=== PATIENT | female | born 1990 | race Two or more races ===

== ENCOUNTER 2024-09-23 04:34 | Emergency (ER) | payer OTHER, SELFPAY ==
[2024-09-23 04:38] VITALS: BP 117/76; BMI 30.9
--- NOTE | 2024-09-23 04:50 | ED.GENMED ---
History of Present Illness
<Ashish Magana MD - Last Filed: 09/23/24 13:25>
General
Chief Complaint: Abdominal Pain
Source: patient
Exam Limitations: none
Time Seen by Provider: 09/23/24 04:43
Nursing documentation reviewed up to this point in time: agreed with
History of Present Illness
History of Present Illness:
Patient presents to ED secondary to sudden onset of lower abdominal pain, which woke the patient up from sleep this morning at 3 AM. Prior to going to sleep, patient does report having had lower abdominal cramping sensation, similar to previous
menstrual cramping sensation with her period. Incidentally, her monthly menstrual cycle started yesterday. Denies trauma. Abdominal pain described as sharp, nonradiating, without any alleviating or exacerbating factors. Denies back pain. Denies
difficulty with urination. Denies previous history of similar symptoms. Denies family history of kidney stones.
Review of Systems
<Ashish Magana MD - Last Filed: 09/23/24 13:25>
Review of Systems
Allergies reviewed?: Yes
All Other Systems: ROS reviewed and negative except as documented in HPI and ROS
Constitutional: Reports no symptoms; Denies fever
ABD/GI: Reports abdominal pain; Denies vomiting or diarrhea
: Reports no symptoms; Denies frequency or difficulty voiding
Musculoskeletal: Reports no symptoms; Denies back pain
Skin: Reports no symptoms
Neurological: Reports no symptoms
Phy Exam
<Ashish Magana MD - Last Filed: 09/23/24 13:25>
Physical Exam
Physical Exam:
Physical Exam
General: mild painful distress, not acutely ill. afebrile
Head: nc/at. eomi
Neck: supple. normal range of motion.
Heart: s1/s2 regular rate and rhythm, no murmur.
Lungs: no acute respiratory distress. clear bilaterally
Abdomen: normal bowel sounds. mild RLQ tenderness to palpation
Neuro: alert and oriented x 3. no focal neurological deficits
Skin: no rash
Psychiatric: well kept. interactive and cooperative
Extremities: no edema. no calf tenderness.
Course
<Ashish Magana MD - Last Filed: 09/23/24 13:25>
Orders/Labs/Results
Orders:
Orders
09/23/24 04:37
IV Insert/Care/Rem.- Treatment PRN
Test Result ONCE
09/23/24 04:44
Complete Blood Count/With Diff Urgent
Comprehensive Metabolic Panel Urgent
HCG, Serum Qualitative Screen Urgent
Lipase Urgent
09/23/24 04:49
0.9% Sodium Chloride 500 ml [Nss] 500 ml IV BOLUS
Ketorolac [Toradol] 15 mg IV NOW STA
US Pelvis W Transvag Combined Urgent
Comment:
Reason For Exam: RLQ pain
Abnormal Lab Results
09/23/24
04:44
Hgb 11.5 L g/dL
(12.0-16.0)
Hct 35.2 L %
(37.0-47.0)
MCH 26.6 L pg
(27.0-31.0)
MCHC 32.7 L g/dL
(33.0-37.0)
MPV 11.3 H fL
(7.4-10.4)
Absolute Monos (auto) 0.7 H 10^3/uL
(0.1-0.6)
Chloride 109 H mmol/L
(98-107)
BUN 19 H mg/dl
(7-17)
Glucose 111 H mg/dl
(70-99)
Alkaline Phosphatase 35 L U/L
(38-126)
09/23/24 04:44
09/23/24 04:44
Vital Signs
Initial and Last Documented VS:
Initial Vital Signs
Temp Pulse Resp BP
98.3 F 73 20 117/76
09/23/24 04:38 09/23/24 04:38 09/23/24 04:38 09/23/24 04:38
Last Documented Vital Signs
Temp Pulse Resp BP
98.3 F 73 21 108/62
09/23/24 04:38 09/23/24 06:41 09/23/24 06:41 09/23/24 06:41
<Naty Gregory DO - Last Filed: 09/23/24 07:06>
Orders/Labs/Results
Orders:
Orders
09/23/24 04:37
IV Insert/Care/Rem.- Treatment PRN
Test Result ONCE
09/23/24 04:44
Complete Blood Count/With Diff Urgent
Comprehensive Metabolic Panel Urgent
HCG, Serum Qualitative Screen Urgent
Lipase Urgent
09/23/24 04:49
0.9% Sodium Chloride 500 ml [Nss] 500 ml IV BOLUS
Ketorolac [Toradol] 15 mg IV NOW STA
US Pelvis W Transvag Combined Urgent
Comment:
Reason For Exam: RLQ pain
Abnormal Lab Results
09/23/24
04:44
Hgb 11.5 L g/dL
(12.0-16.0)
Hct 35.2 L %
(37.0-47.0)
MCH 26.6 L pg
(27.0-31.0)
MCHC 32.7 L g/dL
(33.0-37.0)
MPV 11.3 H fL
(7.4-10.4)
Absolute Monos (auto) 0.7 H 10^3/uL
(0.1-0.6)
Chloride 109 H mmol/L
(98-107)
BUN 19 H mg/dl
(7-17)
Glucose 111 H mg/dl
(70-99)
Alkaline Phosphatase 35 L U/L
(38-126)
09/23/24 04:44
09/23/24 04:44
Vital Signs
Initial and Last Documented VS:
Initial Vital Signs
Temp Pulse Resp BP
98.3 F 73 20 117/76
09/23/24 04:38 09/23/24 04:38 09/23/24 04:38 09/23/24 04:38
Last Documented Vital Signs
Temp Pulse Resp BP
98.3 F 73 21 108/62
09/23/24 04:38 09/23/24 06:41 09/23/24 06:41 09/23/24 06:41
<Ashish Magana MD - Last Filed: 09/23/24 13:25>
*Critical Care Note
Total Time (30-74mins, 75-104mins- exclusive of procedures): Not Applicable
<Naty Gregory DO - Last Filed: 09/23/24 07:06>
Update Note
Update Note:
Attending Signout Note (Naty Gregory DO)
06:10 -assuming care of patient, 34-year-old female presenting for acute onset of right lower quadrant abdominal pain. Patient noted to be uncomfortable on initial exam with symptoms slightly improved since arrival. Laboratory analysis
unremarkable, no leukocytosis. Patient pending pelvic ultrasound and reassessment
07:00-patient's ultrasound is consistent with a hemorrhagic right ovarian cyst. Suspect etiology of patient's pain, likely ruptured. There is some small amount of free fluid in the pelvis. No compromise to the ovary with normal blood flow. On
reassessment patient's pain is controlled. She is hemodynamically stable without concern for hemorrhage. Ultimately feel stable for discharge with close interval follow-up with gynecology with repeat ultrasound imaging in the next 1 to 2 weeks.
Ibuprofen prescription provided. Strict return precautions communicated and patient verbalized understanding
ED Attending Note
<Ashish Magana MD - Last Filed: 09/23/24 13:25>
-
Portions of this chart may have been created with voice recognition software.� Occasional wrong word or��sound alike� substitutions may have occurred due to the inherent limitations of voice recognition software.
Discharge Plan
Departure
Patient Disposition: Home (Routine Discharge)
Date of Disposition: 09/23/24
Time of Disposition: 07:06
Patient with high blood pressure during this ER visit?: No
Discharge Problem:
Rupture of cyst of right ovary
Instructions: Ovarian Cyst (DC)
Prescriptions:
New
ibuprofen 600 mg tablet
600 mg PO Q8H PRN (Reason: Pain) Qty: 20 0RF
Referrals:
Dl Leigh MD [Active] -
Dat Aguilar DO [Family Provider] -
Activity Restrictions/Additional Instructions:
You were seen in the emergency department for right-sided abdominal pain
You were found to have a cyst on your ovary that contains blood. We suspect that the cyst has ruptured, which is causing some pain to the area. Please follow-up closely with a abrasive mixer helper, for reassessment and repeat ultrasound imaging.
Please follow-up closely with your primary care physician.
Return to the emergency department for any worsening of your symptoms including any increase in pain, or any development of chest pain, difficulty breathing, abdominal pain with persistent vomiting and inability to tolerate food or liquid by mouth
(concern for dehydration), weakness, headache or confusion, fever greater than 100.4, or any additional symptoms that are concerning to you.
Thank you for choosing [facility].
Interventions
Interventions:
*Risk Screen - Suicide Last Done: 09/23/24 04:38
*General Assessment Last Done: 09/23/24 04:38
*Neglect/Abuse Screening Last Done: 09/23/24 04:38
*ED- Fall Risk Assessment Last Done: 09/23/24 04:47
*ED COVID-19 Vaccine History Last Done: 09/23/24 04:38
*Nursing Disposition Last Done: 09/23/24 07:34
PE-Xgjwtn-Qjctseevpr Assessment Last Done: 09/23/24 05:01
Discharge Date and Time
Discharge Date/Time: 09/23/24 07:34
Print Language: NORWEGI[place]
[2024-09-23] MEDS: NSS 500 IV (04:55)
[2024-09-23] MEDS: TORADOL 15 MG IV (04:57)
[2024-09-23 05:00] VITALS: BP 111/75
[2024-09-23 05:18] LABS: % Basophils 0.4 % (0-2); % Eosinophils 1.8 % (0-6); % Immature Granulocytes 0.2 % (0-0.5); % Lymphocytes 29.7 % (20.5-51.1); % Monocytes 7.7 % (1.7-9.3); % Neutrophils 60.2 % (42.2-75.2); Absolute Eosinophils 0.2 10^3/uL (0-0.7); Absolute Lymphocytes 2.7 10^3/uL (1.2-3.4); Absolute Monocytes 0.7 10^3/uL (0.1-0.6); Absolute Neutrophils 5.4 10^3/uL (1.4-6.5); Hematocrit 35.2 % (37.0-47.0); Hemoglobin 11.5 g/dL (12.0-16.0); Mean Corp Hgb Conc. 32.7 g/dL (33.0-37.0); Mean Corpuscular Hgb 26.6 pg (27.0-31.0); Mean Corpuscular Volume 81.3 fL (81.0-99.0); Mean Platelet Volume 11.3 fL (7.4-10.4); Nucleated Red Blood Cells % 0 %; Platelet Count 208 10^3/uL (130-400); Red Blood Cell Count 4.33 10^6/uL (4.20-5.40); Red Cell Dist. Width 13.2 % (11.5-14.5)
[2024-09-23 05:30] LABS: HCG, Serum Qualitative Screen Negative
[2024-09-23 05:35] LABS: ALT (SGPT) 11 U/L (0-35); AST (SGOT) 21 U/L (14-36); Albumin 3.8 g/dl (3.5-5.0); Alkaline Phosphatase 35 U/L (38-126); Blood Urea Nitrogen 19 mg/dl (7-17); Carbon Dioxide 24 mmol/L (22-30); Chloride 109 mmol/L (98-107); Estimated Creatinine Clearance > 125 ml/min; Glucose 111 mg/dl (70-99); Lipase 106 U/L (23-300); Potassium 4.1 mmol/L (3.5-5.1); Sodium 140 mmol/L (135-145); Total Bilirubin 0.4 mg/dl (0.2-1.3); Total Protein 6.6 g/dl (6.3-8.2); eGFR > 60.00
[2024-09-23 06:41] VITALS: BP 108/62
== END 2024-09-23 07:34 | disposition home or self-care (01) ==
LOC: EMR 04:34
PROVIDERS: Emergency Medicine; EMERGENCY PHYSICIAN Student in an Organized Health Care Education/Training Program; FAMILY PHYSICIAN Family Medicine
DX: N83.201 Unspecified ovarian cyst, right side (principal)
CPT/HCPCS: 99284; 96374; 96361; 76830; 76856; 80053; 83690; 84703; 85025